=== PATIENT | female | born 1975 | race Caucasian/White ===

== ENCOUNTER 2018-06-17 14:16 | Outpatient (CLI) | payer OTHER ==
[~2018-06-17] VITALS: Ht 160 cm; Wt 80.7 kg
== END 2018-06-17 14:29 | disposition home or self-care (01) ==
LOC: PREOP 14:16
PROVIDERS: ATTEND Surgery
DX: Z01.818 Encounter for other preprocedural examination (principal)

== ENCOUNTER → 2018-06-24 | Day surgery (SDC) | payer OTHER ==
[~2018-06-24] VITALS: Ht 160 cm; Wt 80.7 kg
[~2018-06-24] MED LIST: LACTATED RINGERS 1,000 ML IV PRN
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
[2018-06-24 10:25] VITALS: BP 135/85
== END | disposition home or self-care (01) ==
LOC: ENDO 10:07
PROVIDERS: ATTEND Surgery
DX: R10.32 Left lower quadrant pain (principal); R19.4 Change in bowel habit; K62.5 Hemorrhage of anus and rectum; Z53.09 Procedure and treatment not carried out because of other contraindication; R56.9 Unspecified convulsions
CPT/HCPCS: 84703